=== PATIENT | female | born 1980 | race American Indian/Alaskan Native ===

== ENCOUNTER 2022-02-23 07:43 | Emergency (ER) | payer OTHER, MEDICAID | END 2022-02-23 09:35 | disposition home or self-care (01) | LOC: VM.ED 07:43 → MERGE 07:43 → VM.ED 09:35 | DX: M54.50 Low back pain, unspecified (principal); Z88.6 Allergy status to analgesic agent; Z88.5 Allergy status to narcotic agent; Z72.0 Tobacco use; V89.2XXA Person injured in unspecified motor-vehicle accident, traffic, initial encounter; Y92.410 Unspecified street and highway as the place of occurrence of the external cause | CPT/HCPCS: 99283; 99284 ==